=== PATIENT | female | born 1945 | race Two or more races ===

== ENCOUNTER 2018-05-16 06:27 | Outpatient (CLI) | payer OTHER | END 2018-05-16 07:45 | disposition home or self-care (01) | LOC: LAB 06:27 | DX: I10 Essential (primary) hypertension (principal); E11.9 Type 2 diabetes mellitus without complications; E03.8 Other specified hypothyroidism; E78.2 Mixed hyperlipidemia; M81.0 Age-related osteoporosis without current pathological fracture; K92.1 Melena; D64.0 Hereditary sideroblastic anemia ==

== ENCOUNTER → 2018-08-11 | Outpatient (CLI) | payer OTHER | END | disposition home or self-care (01) | LOC: MAMO-SONO 07:15 → SONOGRAMA 07:22 | DX: R16.0 Hepatomegaly, not elsewhere classified (principal); R10.32 Left lower quadrant pain ==

== ENCOUNTER 2019-02-22 06:41 | Outpatient (CLI) | payer OTHER | END 2019-02-22 07:21 | disposition home or self-care (01) | LOC: LAB 06:41 | DX: E11.9 Type 2 diabetes mellitus without complications (principal); E03.8 Other specified hypothyroidism; E78.2 Mixed hyperlipidemia; B20 Human immunodeficiency virus [HIV] disease; K72.00 Acute and subacute hepatic failure without coma; I10 Essential (primary) hypertension; Z11.4 Encounter for screening for human immunodeficiency virus [HIV] ==

== ENCOUNTER 2019-02-22 12:16 | Outpatient (CLI) | payer OTHER | END 2019-02-22 12:38 | disposition home or self-care (01) | LOC: MAMO-SONO 12:16 | DX: Z12.31 Encounter for screening mammogram for malignant neoplasm of breast (principal); Z87.898 Personal history of other specified conditions; N63.10 Unspecified lump in the right breast, unspecified quadrant; N63.20 Unspecified lump in the left breast, unspecified quadrant ==

== ENCOUNTER 2019-12-20 07:23 | Outpatient (CLI) | payer OTHER | END 2019-12-20 07:31 | disposition home or self-care (01) | LOC: LAB 07:23 | DX: E11.9 Type 2 diabetes mellitus without complications (principal); I10 Essential (primary) hypertension; E03.8 Other specified hypothyroidism; E78.2 Mixed hyperlipidemia; Z12.11 Encounter for screening for malignant neoplasm of colon; M81.0 Age-related osteoporosis without current pathological fracture ==

== ENCOUNTER 2020-11-25 07:09 | Outpatient (CLI) | payer OTHER | END 2020-11-25 07:37 | disposition home or self-care (01) | LOC: LAB 07:09 | PROVIDERS: ATTEND Internal Medicine Cardiovascular Disease | DX: I10 Essential (primary) hypertension (principal); E11.9 Type 2 diabetes mellitus without complications; E03.8 Other specified hypothyroidism; E78.2 Mixed hyperlipidemia; Z12.11 Encounter for screening for malignant neoplasm of colon; E55.9 Vitamin D deficiency, unspecified ==

== ENCOUNTER → 2020-12-04 | Outpatient (CLI) | payer OTHER | END | disposition home or self-care (01) | LOC: NUCLEAR 10:00 | PROVIDERS: ATTEND Internal Medicine Cardiovascular Disease | DX: M81.0 Age-related osteoporosis without current pathological fracture (principal) ==

== ENCOUNTER 2021-07-29 08:00 | Outpatient (CLI) | payer OTHER | END 2021-07-29 09:30 | disposition home or self-care (01) | LOC: PPH VACUNA 08:00 | PROVIDERS: ATTEND Emergency Medicine Pediatric Emergency Medicine | DX: Z23 Encounter for immunization (principal) ==

== ENCOUNTER 2021-12-25 13:00 | Outpatient (CLI) | payer OTHER | END 2021-12-25 13:03 | disposition home or self-care (01) | LOC: RAD 13:00 | PROVIDERS: ATTEND Orthopaedic Surgery | DX: S99.911A Unspecified injury of right ankle, initial encounter (principal) ==

== ENCOUNTER 2022-01-14 07:57 | Outpatient (CLI) | payer OTHER | END 2022-01-14 08:09 | disposition home or self-care (01) | LOC: MRI 07:57 | PROVIDERS: ATTEND Orthopaedic Surgery | DX: M65.871 Other synovitis and tenosynovitis, right ankle and foot (principal) | CPT/HCPCS: 73721 ==

== ENCOUNTER 2022-04-11 08:13 | Outpatient (CLI) | payer OTHER | END 2022-04-11 08:26 | disposition home or self-care (01) | LOC: RAD 08:13 | DX: M79.671 Pain in right foot (principal) ==

== ENCOUNTER 2022-06-04 06:33 | Outpatient (CLI) | payer OTHER | END 2022-06-04 06:45 | disposition home or self-care (01) | LOC: LAB 06:33 | PROVIDERS: ATTEND Internal Medicine Cardiovascular Disease | DX: I10 Essential (primary) hypertension (principal); E11.9 Type 2 diabetes mellitus without complications; E03.9 Hypothyroidism, unspecified; E78.2 Mixed hyperlipidemia; E55.9 Vitamin D deficiency, unspecified; Z12.11 Encounter for screening for malignant neoplasm of colon ==

== ENCOUNTER 2022-12-05 07:06 | Emergency (ER) | payer OTHER ==
[~2022-12-05] VITALS: Ht 160 cm; Wt 69.9 kg
== END 2022-12-05 10:34 | disposition home or self-care (01) ==
LOC: ER 07:06
DX: M25.562 Pain in left knee (principal)

== ENCOUNTER 2025-07-26 08:19 | Outpatient (CLI) | payer OTHER | END 2025-07-26 08:33 | disposition home or self-care (01) | LOC: MAMO-SONO 08:19 | PROVIDERS: ATTEND Internal Medicine | DX: R92.0 Mammographic microcalcification found on diagnostic imaging of breast (principal); Z12.31 Encounter for screening mammogram for malignant neoplasm of breast ==

== ENCOUNTER 2025-08-22 14:50 | Outpatient (CLI) | payer OTHER | END 2025-08-22 14:54 | disposition home or self-care (01) | LOC: TOM 14:50 | PROVIDERS: ATTEND Internal Medicine | DX: R05.9 Cough, unspecified (principal) ==